=== PATIENT | female | born 1950 | race Caucasian/White ===

== ENCOUNTER 2017-08-18 07:50 | Day surgery (SDC) ==
[2017-08-18] MEDS ORDERED: LIDOCAINE 1% 20 ML MDV ID STA (08:16)
[2017-08-18] MEDS ORDERED: DIPRIVAN 20 ML VIAL IVP ONE (09:45)
[2017-08-18] MEDS ORDERED: VERSED ONE (09:45)
[2017-08-18 10:45] VITALS: BP 176/83; TEMP 97.5
--- NOTE | 2017-08-19 08:15 | OP ---
PROCEDURE: COLONOSCOPY TO CECUM WITH SNARE POLYPECTOMY. ENDOSCOPIST: Keshia MCFARLAND M.D. INDICATION: HISTORY OF POLYPS INSTRUMENT: PCSOL ELIXIRS-[id number]. MEDICATION: PER ANESTHESIA. PROCEDURE: The patient was positioned for colonoscopy. The digital rectal exam was negative. The colonoscope was inserted through the anus and advanced to the cecum. Anastomosis noted in the left abdomen proximally 40cm from the anal rectal junction. On withdraw the hepatic flexure we found a 1.5cm sessile polyp removed using piecemeal polypectomy with cautery. This has a hyperplastic appearance. A similar sessile polyp at 40cm removed using snare cautery. A small adenomatous appearing polyp at 20cm removed using snare cautery. Diverticuli were noted throughout the left colon. The retroflex exam was otherwise normal. Withdraw 16 minutes and 9 seconds. PLAN: 1. Given the piecemeal resections and history of multiple large polyps suggest repeat colonoscopy in one year. CC: Dr. Ankit GANN
== END 2017-08-18 11:03 | disposition home or self-care (01) ==
LOC: SURG 07:50
PROVIDERS: ATTEND Internal Medicine Gastroenterology
DX: Z09 Encounter for follow-up examination after completed treatment for conditions other than malignant neoplasm (principal); Z86.010 Personal history of colon polyps; D12.3 Benign neoplasm of transverse colon; D12.5 Benign neoplasm of sigmoid colon; K57.30 Diverticulosis of large intestine without perforation or abscess without bleeding; Z98.0 Intestinal bypass and anastomosis status

== ENCOUNTER 2018-07-01 13:49 | Outpatient (CLI) | payer OTHER ==
--- NOTE | 2018-07-03 10:05 | MAMMO ---
EXAM: Bilateral digital screening mammogram (2-D and 3-D) History: Screening Comparison: Bilateral mammogram 06/30/2015 Findings: MLO and CC views of bilateral breasts demonstrate scattered fibroglandular breast parenchy ma. CAD was reviewed by the radiologist. Tomosynthesis was performed. Surgical clips seen within t he right axilla. Stable benign bilateral breast calcifications. There are no dominant masses, no last spicious microcalcifications and no architectural distortions Impression: Benign stable mammogram. Recommend followup routine screening mammography in 1 year. BIRADS 2
== END 2018-07-01 13:50 | disposition home or self-care (01) ==
LOC: RAD 13:49
PROVIDERS: ATTEND Internal Medicine
DX: Z12.31 Encounter for screening mammogram for malignant neoplasm of breast (principal)
CPT/HCPCS: 77067

== ENCOUNTER 2018-11-20 08:11 | Outpatient (CLI) | payer OTHER ==
--- NOTE | 2018-11-20 10:25 | US ---
EXAM: Bilateral carotid artery Doppler History: Dizziness. Comparison: Carotid Doppler 02/29/2016 Technique: Multiple sonographic images through the bilateral internal carotid arteries were obtained . Color duplex Doppler was used to interrogate vascular flow. Findings: The right ICA peak systolic velocity is within normal limits measuring 83 cm/sec. The right ICA/cca PSV ratio is normal at 1.2. The right vertebral artery is patent and demonstrates antegrade flow. G ray scale images demonstrate mild plaque buildup within the right internal carotid artery. The left ICA peak systolic velocity is within normal limits measuring 98 cm/sec. The left ICA/cca PS V ratio is normal at 1.6. The left vertebral artery is patent and demonstrates antegrade flow. Steiner scale images demonstrate mild plaque buildup within the left internal carotid artery Impression: No significant hemodynamic stenosis of the bilateral internal carotid arteries
--- NOTE | 2018-11-20 11:09 | DI ---
Exam: Two views of the chest. Comparison: 02/29/2016. Reason for exam: Palpitation. FINDINGS: No pneumothorax, pleural effusion, or focal consolidation. Operative changes are seen in the right axilla. The cardiac silhouette is not enlarged. Impression: No acute cardiopulmonary process.
--- NOTE | 2018-11-23 14:40 | HOLTER ---
PATIENT INFORMATION AND COMMENTS Attending Physician: DR. LINDSEY ARROYO Indications: PALPITATIONS AND DIZZINESS __ Patient Medications: GABAPENTIN, ULTRAM, SIMVASTATIN, CYMBALTA __ Pre-procedure Summary: Protocol: Standard Heart Rate Started: 11/20/18852 Minimum: 61 BPM Weight: 169 LBS Ended: 11/21/18852 Maximum: 120 BPM Height: 61" Duration: 24 HOURS Average: 80 BPM _ INTERPRETATIONS/OBSERVATIONS: 1. BASIC RHYTHM: SINUS, RATE 60 BPM TO 120 BPM, AVERAGE 80 BPM 2. FREQUENT PVC'S--ISOLATED, UNIFOCAL 3% TO 4% OF BEATS SCANNED, NO TACHYARRHYTHMIAS 3. NO ST-T WAVE CHANGES FROM BASELINE 4. NO CORRELATION WITH ACTIVITY LOG MTDD
== END 2018-11-20 08:12 | disposition home or self-care (01) ==
LOC: RAD 08:11
PROVIDERS: ATTEND Internal Medicine
DX: R00.2 Palpitations (principal); R42 Dizziness and giddiness; I65.29 Occlusion and stenosis of unspecified carotid artery
CPT/HCPCS: 93227